=== PATIENT | male | born 1960 | race Caucasian/White ===

== ENCOUNTER 2016-08-16 20:06 | Inpatient (IN) | payer BC ==
[2016-08-16] VITALS (24 sets, daily range): BP systolic 78–98; BP diastolic 55–82; PULSE 108–110; TEMP 97; O2SAT 96–100
[~2016-08-16] VITALS: Ht 185.4 cm; Wt 125.9 kg
[2016-08-17] VITALS (692 sets, daily range): BP systolic 104–139; BP diastolic 68–99; PULSE 83–110; TEMP 96.3–98.9; O2SAT 69–100
[2016-08-17 01:24] LABS: TROPONIN-I 0.076 ng/mL (0.000-0.034)
[2016-08-17 01:36] LABS: THYROID STIMULATING HORMONE 2.37 uIU/mL (0.465-4.680)
[2016-08-17 06:19] LABS: ADD PATHOLOGY DIFF REVIEW NO
[2016-08-17 06:24] LABS: HEMATOCRIT 48.1 % (42.0-52.0); HEMOGLOBIN 15.9 g/dl (13.5-18.0); MEAN CELL VOLUME 98 fl (80.0-100.0); MEAN CORPUSCULAR HEMOGLOBIN 32 pg (27.0-31.0); MEAN CORPUSCULAR HGB CONC 33 g/dl (33.0-37.0); MEAN PLATELET VOLUME 9.6 fl (7.4-10.4); PLATELET COUNT 373 K/mm3 (130-400); RED BLOOD COUNT 4.93 M/mm3 (4.20-5.60)
[2016-08-17 06:33] LABS: CALCIUM 9.2 mg/dL (8.4-10.2); CREATININE, serum 0.98 mg/dL (0.66-1.25); POTASSIUM 4.5 mmol/L (3.4-5.0)
[2016-08-17 07:37] LABS: TROPONIN-I 0.075 ng/mL (0.000-0.034)
[2016-08-17 13:08] LABS: BAND 6 % (0-10); BASOPHIL 1 % (0-2); EOSINOPHIL 1 % (0-4); NEUTROPHILS 62 % (42.0-75.2); PLATELET ESTIMATE NORMAL (NORMAL); TOTAL CELLS COUNTED 100
[2016-08-17 17:27] LABS: ARTERIAL BLD GAS O2 SATURATION 91.7 % (92-100); ARTERIAL BLD GAS TCO2 CT 26.5; ARTERIAL BLOOD GAS BASE EXCESS -3.9 (-2-2); ARTERIAL BLOOD GAS HCO3 24.7 meq/L (22-26); ARTERIAL BLOOD GAS PHT 7.24 C (7.35-7.45); ARTERIAL BLOOD GAS PO2 69.7 mmHg (80-100); ARTERIAL BLOOD GAS PO2T 69.7 (80-100); ARTERIAL BLOOD GAS pH 7.24 (7.35-7.45); OXYHEMOGLOBIN 90.4 %
[2016-08-17 17:28] LABS: ATS? YES
[2016-08-17] MEDS ORDERED: ASPIRIN 81M81 MG/TA2 PO (23:08)
[2016-08-18] VITALS (1332 sets, daily range): BP systolic 114–132; BP diastolic 47–76; PULSE 83–114; TEMP 96.3–98.9; O2SAT 78–100
[2016-08-18 05:27] LABS: BASO % 0.2 % (0.0-2.0); GRAN # 15.2 (1.4-6.5); GRAN % 89.1 % (42.2-75.2); HEMATOCRIT 47.5 % (42.0-52.0); HEMOGLOBIN 15.7 g/dl (13.5-18.0); LYMPH # 1.4 (1.2-3.4); MEAN CELL VOLUME 97 fl (80.0-100.0); MEAN CORPUSCULAR HEMOGLOBIN 32 pg (27.0-31.0); MEAN CORPUSCULAR HGB CONC 33 g/dl (33.0-37.0); MEAN PLATELET VOLUME 9.4 fl (7.4-10.4); MONO # 0.4 (0.1-0.6); MONO % 2.1 % (1.7-9.3); PLATELET COUNT 374 K/mm3 (130-400); RED BLOOD COUNT 4.88 M/mm3 (4.20-5.60); REDCELL DISTRIBUTION WIDTH-CV 12.8 % (11.5-14.5)
[2016-08-18 05:39] LABS: CREATININE, serum 1.1 mg/dL (0.66-1.25); POTASSIUM 5.2 mmol/L (3.4-5.0)
[2016-08-18 10:34] LABS: ARTERIAL BLD GAS O2 SATURATION 93.7 % (92-100); ARTERIAL BLD GAS TCO2 CT 21.8; ARTERIAL BLOOD GAS HCO3 20.6 meq/L (22-26); ARTERIAL BLOOD GAS PHT 7.33 C (7.35-7.45); ARTERIAL BLOOD GAS PO2 71.8 mmHg (80-100); ARTERIAL BLOOD GAS PO2T 71.8 (80-100); ARTERIAL BLOOD GAS pH 7.33 (7.35-7.45); ATS? YES; OXYHEMOGLOBIN 92.3 %
[2016-08-18 10:34] LABS: PH 6 (5-8); SQUAMOUS EPITHELIAL None Seen /hpf; URINE APPEARANCE Clear; URINE BACTERIA None Seen /hpf; URINE BILIRUBIN Negative (NEGATIVE); URINE BLOOD Negative (NEGATIVE); URINE COLOR Yellow; URINE GLUCOSE 2+ (NEGATIVE); URINE KETONE Trace (NEGATIVE); URINE RBC 0-2 /hpf; URINE UROBILINOGEN Negative (NEGATIVE); URINE WBC 0-2 /hpf
[2016-08-19] VITALS (543 sets, daily range): BP systolic 110–125; BP diastolic 50–83; PULSE 79–89; TEMP 97.5–98.2; O2SAT 83–100
[2016-08-19 05:54] LABS: HEMATOCRIT 44.5 % (42.0-52.0); MEAN CELL VOLUME 96 fl (80.0-100.0); MEAN CORPUSCULAR HEMOGLOBIN 32 pg (27.0-31.0); MEAN CORPUSCULAR HGB CONC 34 g/dl (33.0-37.0); MEAN PLATELET VOLUME 9.6 fl (7.4-10.4); PLATELET COUNT 358 K/mm3 (130-400); RED BLOOD COUNT 4.64 M/mm3 (4.20-5.60); REDCELL DISTRIBUTION WIDTH-CV 13.1 % (11.5-14.5)
[2016-08-19 06:03] LABS: CALCIUM 9.1 mg/dL (8.4-10.2); CREATININE, serum 1.02 mg/dL (0.66-1.25); POTASSIUM 4.8 mmol/L (3.4-5.0)
[2016-08-19 06:40] LABS: ADD PATHOLOGY DIFF REVIEW NO; WHITE BLOOD COUNT 27.7 K/mm3 (4.8-10.8)
[2016-08-19 07:00] LABS: BAND 13 % (0-10); NEUTROPHILS 72 % (42.0-75.2); PLATELET ESTIMATE NORMAL (NORMAL); TOTAL CELLS COUNTED 200
[2016-08-19 08:36] LABS: MAGNESIUM 2.2 mg/dL (1.6-2.3)
[2016-08-20 00:23] VITALS: BP 107/66; PULSE 77; TEMP 97.5
[2016-08-20 04:33] VITALS: BP 107/72; PULSE 76; TEMP 97.5
[2016-08-20 07:27] LABS: CALCIUM 8.9 mg/dL (8.4-10.2); CREATININE, serum 1.05 mg/dL (0.66-1.25); MAGNESIUM 2.4 mg/dL (1.6-2.3); POTASSIUM 4.8 mmol/L (3.4-5.0)
[2016-08-20 07:49] VITALS: BP 104/59; PULSE 89; TEMP 97.4
[2016-08-20] MEDS ORDERED: XARELTO20 MG PO (10:41)
[2016-08-20] MEDS ORDERED: LEVAQUIN 750MG750 M1 PO (10:41)
[2016-08-20] MEDS ORDERED: PREDNISONE20 MG PO (10:43)
[2016-08-20 11:52] VITALS: BP 119/70; PULSE 83; TEMP 98.1
[2016-08-20] MEDS ORDERED: LASIX 20MG TABL20 MG PO (15:24)
[2016-08-20] MEDS ORDERED: RT ADVAIR 228 DISKUS IH (15:24)
[2016-08-20] MEDS ORDERED: INCRUSE EL62.5 MCG/A IH (15:56)
[2016-08-20] MEDS ORDERED: CORDARONE200 MG/TAB PO (15:59)
[2016-08-20] MEDS ORDERED: FLONASEALLERGY NS (16:00)
== END 2016-08-20 17:38 | disposition home or self-care (01) | DRG 308 ==
LOC: ICU 20:06 → MEDICAL 20:06 → IMCU 20:06 → MEDICAL 08-19 13:44
PROVIDERS: Family Medicine; Internal Medicine
PROC: 5A2204Z Restoration of Cardiac Rhythm, Single (ICD-10-PCS; principal; 2016-08-17)
DX: I48.0 Paroxysmal atrial fibrillation (principal); I50.23 Acute on chronic systolic (congestive) heart failure; J96.01 Acute respiratory failure with hypoxia; J44.1 Chronic obstructive pulmonary disease with (acute) exacerbation; I11.0 Hypertensive heart disease with heart failure; I08.0 Rheumatic disorders of both mitral and aortic valves; F17.210 Nicotine dependence, cigarettes, uncomplicated
CPT/HCPCS: 99222-AI; 99231-AI; 99232-AI; 99233-AI; 99239; G9654; J0282; J1650; J1815; J1940; J1956; J2250; J2704; J2930; J7030; J7050; J7060; J7512; J7614; Q9967

== ENCOUNTER 2016-12-20 12:53 | Inpatient (IN) | payer BC ==
[2016-12-20] VITALS (514 sets, daily range): BP systolic 95–136; BP diastolic 72–84; PULSE 101–105; TEMP 97; O2SAT 76–100
[~2016-12-20] VITALS: Ht 185.4 cm; Wt 113.0 kg
[~2016-12-20 12:53] MED LIST: ASPIRIN 81M81 MG/TA2 PO; CORDARONE200 MG/TAB PO; FLONASEALLERGY NS; INCRUSE EL62.5 MCG/A IH; LASIX 20MG TABL20 MG PO; LEVAQUIN 750MG750 M1 PO; PREDNISONE20 MG PO; RT ADVAIR 228 DISKUS IH; XARELTO20 MG PO
[2016-12-20] MEDS ORDERED: MULTI VITAMINS1 TAB PO (16:41)
[2016-12-20] MEDS ORDERED: PACERONE100 MG PO (16:42)
[2016-12-20] MEDS ORDERED: LASIX 40MG TABL40 MG PO (16:47)
[2016-12-20] MEDS ORDERED: AMBIEN 5MG TABLE5 MG PO (16:48)
[2016-12-20] MEDS ORDERED: ASTELIN NASAL S34 ML (16:49)
[2016-12-20 18:06] LABS: MEAN CELL VOLUME 98 fl (80.0-100.0); MEAN CORPUSCULAR HEMOGLOBIN 32 pg (27.0-31.0); MEAN CORPUSCULAR HGB CONC 32 g/dl (33.0-37.0); MEAN PLATELET VOLUME 9.8 fl (7.4-10.4); PLATELET COUNT 450 K/mm3 (130-400); RED BLOOD COUNT 5.08 M/mm3 (4.20-5.60); REDCELL DISTRIBUTION WIDTH-CV 14.5 % (11.5-14.5)
[2016-12-20 18:11] LABS: ADD PATHOLOGY DIFF REVIEW NO; WHITE BLOOD COUNT 23.1 K/mm3 (4.8-10.8)
[2016-12-20 18:15] LABS: ADJUSTED CALCIUM 9.2 mg/dL (8.4-10.2); ALBUMIN 3.1 gm/dL (3.5-5.0); BILIRUBIN,TOTAL 1.1 mg/dL (0.0-1.0); CALCIUM 8.5 mg/dL (8.4-10.2); CREATININE, serum 1.51 mg/dL (0.66-1.25); POTASSIUM 4.7 mmol/L (3.4-5.0); TOTAL PROTEIN 6.2 gm/dL (6.4-8.2)
[2016-12-20 18:18] LABS: BAND 64 % (0-10); METAMYELOCYTE 4 % (0-0); NEUTROPHILS 22 % (42.0-75.2); PLATELET ESTIMATE INCREASED (NORMAL); TOTAL CELLS COUNTED 100
[2016-12-20 19:52] LABS: ARTERIAL BLD GAS O2 SATURATION 92.2 % (92-100); ARTERIAL BLD GAS TCO2 CT 21.5; ARTERIAL BLOOD GAS BASE EXCESS -6.3 (-2-2); ARTERIAL BLOOD GAS HCO3 20.2 meq/L (22-26); ARTERIAL BLOOD GAS PHT 7.29 C (7.35-7.45); ARTERIAL BLOOD GAS PO2 68.6 mmHg (80-100); ARTERIAL BLOOD GAS PO2T 68.6 (80-100); ARTERIAL BLOOD GAS pH 7.29 (7.35-7.45); OXYHEMOGLOBIN 90.8 %
[2016-12-20 19:56] LABS: ALLEN TEST NO; ATS? NO
[2016-12-21] VITALS (1296 sets, daily range): BP systolic 100–127; BP diastolic 69–99; PULSE 93–127; TEMP 97.1–98.1; O2SAT 76–100
[2016-12-21 04:48] LABS: HEMATOCRIT 43.2 % (42.0-52.0); MEAN CELL VOLUME 99 fl (80.0-100.0); MEAN CORPUSCULAR HEMOGLOBIN 32 pg (27.0-31.0); MEAN CORPUSCULAR HGB CONC 32 g/dl (33.0-37.0); MEAN PLATELET VOLUME 9.4 fl (7.4-10.4); PLATELET COUNT 495 K/mm3 (130-400); RED BLOOD COUNT 4.36 M/mm3 (4.20-5.60); REDCELL DISTRIBUTION WIDTH-CV 14.5 % (11.5-14.5)
[2016-12-21 05:01] LABS: CALCIUM 8.2 mg/dL (8.4-10.2); CREATININE, serum 2.37 mg/dL (0.66-1.25); POTASSIUM 5.2 mmol/L (3.4-5.0)
[2016-12-21 05:09] LABS: HEMOGLOBIN 13.9 g/dl (13.5-18.0)
[2016-12-21 05:10] LABS: ADD PATHOLOGY DIFF REVIEW NO; WHITE BLOOD COUNT 20.3 K/mm3 (4.8-10.8)
[2016-12-21 05:23] LABS: ARTERIAL BLD GAS O2 SATURATION 97.5 % (92-100); ARTERIAL BLD GAS TCO2 CT 22.6; ARTERIAL BLOOD GAS BASE EXCESS -6.1 (-2-2); ARTERIAL BLOOD GAS HCO3 21.1 meq/L (22-26); ARTERIAL BLOOD GAS PHT 7.26 C (7.35-7.45); ARTERIAL BLOOD GAS PO2 116.6 mmHg (80-100); ARTERIAL BLOOD GAS PO2T 116.6 (80-100); ARTERIAL BLOOD GAS pH 7.26 (7.35-7.45); OXYHEMOGLOBIN 96.7 %
[2016-12-21 05:50] LABS: BAND 79 % (0-10); METAMYELOCYTE 1 % (0-0); NEUTROPHILS 13 % (42.0-75.2); PLATELET ESTIMATE INCREASED (NORMAL); TOTAL CELLS COUNTED 100
[2016-12-21 11:21] LABS: TROPONIN-I 0.336 ng/mL (0.000-0.034)
[2016-12-21 15:36] LABS: PH 5 (5-8); SQUAMOUS EPITHELIAL 0-2 /hpf; URINE APPEARANCE Hazy; URINE BACTERIA Rare /hpf; URINE BILIRUBIN Negative (NEGATIVE); URINE BLOOD 1+ (NEGATIVE); URINE COLOR Yellow; URINE GLUCOSE 1+ (NEGATIVE); URINE KETONE Negative (NEGATIVE); URINE UROBILINOGEN Negative (NEGATIVE)
[2016-12-21 16:28] LABS: ARTERIAL BLD GAS O2 SATURATION 94.2 % (92-100); ARTERIAL BLD GAS TCO2 CT 26.5; ARTERIAL BLOOD GAS BASE EXCESS -4.9 (-2-2); ARTERIAL BLOOD GAS HCO3 24.5 meq/L (22-26); ARTERIAL BLOOD GAS PHT 7.19 C (7.35-7.45); ARTERIAL BLOOD GAS PO2 86.3 mmHg (80-100); ARTERIAL BLOOD GAS PO2T 86.3 (80-100); OXYHEMOGLOBIN 93.3 %
[2016-12-21 16:29] LABS: ARTERIAL BLOOD GAS pH 7.19 (7.35-7.45); ATS? NO
[2016-12-21 21:00] LABS: ARTERIAL BLD GAS O2 SATURATION 98.5 % (92-100); ARTERIAL BLD GAS TCO2 CT 25.5; ARTERIAL BLOOD GAS BASE EXCESS -2.8 (-2-2); OXYHEMOGLOBIN 97.6 %
[2016-12-21 21:02] LABS: ARTERIAL BLOOD GAS PO2 138.7 mmHg (80-100); ARTERIAL BLOOD GAS PO2T 138.7 (80-100)
[2016-12-22] VITALS (1077 sets, daily range): BP systolic 106–124; BP diastolic 78–95; PULSE 97–121; TEMP 07.1; O2SAT 80–100
[2016-12-22 05:34] LABS: BASO # 0.1 (0.0-0.2); BASO % 0.5 % (0.0-2.0); GRAN # 13.4 (1.4-6.5); GRAN % 88.1 % (42.2-75.2); LYMPH # 0.7 (1.2-3.4); LYMPH % 4.8 % (20.0-51.0); MEAN CELL VOLUME 99 fl (80.0-100.0); MEAN CORPUSCULAR HGB CONC 32 g/dl (33.0-37.0); MEAN PLATELET VOLUME 9.9 fl (7.4-10.4); MONO # 0.8 (0.1-0.6); RED BLOOD COUNT 3.62 M/mm3 (4.20-5.60); REDCELL DISTRIBUTION WIDTH-CV 14.7 % (11.5-14.5); WHITE BLOOD COUNT 15.2 K/mm3 (4.8-10.8)
[2016-12-22 05:56] LABS: HEMATOCRIT 35.7 % (42.0-52.0); HEMOGLOBIN 11.5 g/dl (13.5-18.0); MEAN CORPUSCULAR HEMOGLOBIN 32 pg (27.0-31.0); PLATELET COUNT 387 K/mm3 (130-400)
[2016-12-22 06:06] LABS: CALCIUM 7.7 mg/dL (8.4-10.2); CREATININE, serum 1.26 mg/dL (0.66-1.25); POTASSIUM 5.1 mmol/L (3.4-5.0)
[2016-12-22 06:28] LABS: ARTERIAL BLOOD GAS pH 7.35 (7.35-7.45)
[2016-12-22 06:29] LABS: ARTERIAL BLD GAS O2 SATURATION 95.6 % (92-100); ARTERIAL BLOOD GAS BASE EXCESS -0.7 (-2-2); ARTERIAL BLOOD GAS HCO3 25.3 meq/L (22-26)
[2016-12-22 16:27] LABS: ARTERIAL BLOOD GAS BASE EXCESS 0.7 (-2-2); ARTERIAL BLOOD GAS HCO3 26.8 meq/L (22-26); ARTERIAL BLOOD GAS PO2 89.4 mmHg (80-100); ARTERIAL BLOOD GAS pH 7.36 (7.35-7.45)
[2016-12-22 16:28] LABS: ALLEN TEST NO; ARTERIAL BLD GAS TCO2 CT 28.3; ATS? YES
[2016-12-23] VITALS (1329 sets, daily range): BP systolic 104–141; BP diastolic 73–98; PULSE 93–112; TEMP 97–98.4; O2SAT 77–100
[2016-12-23 05:28] LABS: HEMATOCRIT 40.4 % (42.0-52.0); MEAN CELL VOLUME 98 fl (80.0-100.0); MEAN CORPUSCULAR HEMOGLOBIN 32 pg (27.0-31.0); MEAN CORPUSCULAR HGB CONC 32 g/dl (33.0-37.0); MEAN PLATELET VOLUME 9.9 fl (7.4-10.4); PLATELET COUNT 409 K/mm3 (130-400); RED BLOOD COUNT 4.12 M/mm3 (4.20-5.60); REDCELL DISTRIBUTION WIDTH-CV 14.7 % (11.5-14.5)
[2016-12-23 05:45] LABS: ADD PATHOLOGY DIFF REVIEW NO
[2016-12-23 05:51] LABS: CALCIUM 8.6 mg/dL (8.4-10.2); CREATININE, serum 1.11 mg/dL (0.66-1.25)
[2016-12-23 05:53] LABS: POTASSIUM 6.2 mmol/L (3.4-5.0)
[2016-12-23 06:06] LABS: INR 1.5 (0.8-3.0); PROTHROMBIN TIME 16.5 SECONDS (9.7-12.8)
[2016-12-23 06:07] LABS: BAND 28 % (0-10); METAMYELOCYTE 2 % (0-0); NEUTROPHILS 58 % (42.0-75.2); PLATELET ESTIMATE NORMAL (NORMAL); TOTAL CELLS COUNTED 100
[2016-12-23 06:09] LABS: PARTIAL THROMBOPLASTIN TIME 32.9 SECONDS (26.0-37.0)
[2016-12-23 21:18] LABS: CALCIUM 8.3 mg/dL (8.4-10.2); CREATININE, serum 1.04 mg/dL (0.66-1.25)
[2016-12-23 21:24] LABS: POTASSIUM 5.8 mmol/L (3.4-5.0)
[2016-12-24] VITALS (1159 sets, daily range): BP systolic 111–122; BP diastolic 73–98; PULSE 105–122; TEMP 96.9–97.5; O2SAT 57–100
[2016-12-24 03:57] LABS: CALCIUM 8.4 mg/dL (8.4-10.2); CREATININE, serum 0.99 mg/dL (0.66-1.25); POTASSIUM 5.3 mmol/L (3.4-5.0)
[2016-12-24 06:29] LABS: CALCIUM 8.3 mg/dL (8.4-10.2); CREATININE, serum 0.9 mg/dL (0.66-1.25); POTASSIUM 5.1 mmol/L (3.4-5.0)
[2016-12-24 21:11] LABS: CALCIUM 8.6 mg/dL (8.4-10.2); CREATININE, serum 1.05 mg/dL (0.66-1.25); POTASSIUM 5.1 mmol/L (3.4-5.0)
[2016-12-25] VITALS (727 sets, daily range): BP systolic 101–126; BP diastolic 66–108; PULSE 56–122; TEMP 97.7–98.7; O2SAT 82–100
[2016-12-25 04:39] LABS: CALCIUM 8.6 mg/dL (8.4-10.2); CREATININE, serum 0.99 mg/dL (0.66-1.25); MAGNESIUM 2.9 mg/dL (1.6-2.3); POTASSIUM 5.3 mmol/L (3.4-5.0)
[2016-12-25 05:31] LABS: HEMATOCRIT 40.4 % (42.0-52.0); HEMOGLOBIN 13.5 g/dl (13.5-18.0); MEAN CELL VOLUME 94 fl (80.0-100.0); MEAN CORPUSCULAR HEMOGLOBIN 32 pg (27.0-31.0); MEAN CORPUSCULAR HGB CONC 33 g/dl (33.0-37.0); MEAN PLATELET VOLUME 10.1 fl (7.4-10.4); PLATELET COUNT 538 K/mm3 (130-400); RED BLOOD COUNT 4.29 M/mm3 (4.20-5.60); REDCELL DISTRIBUTION WIDTH-CV 14.4 % (11.5-14.5); WHITE BLOOD COUNT 19.1 K/mm3 (4.8-10.8)
[2016-12-26 02:57] VITALS: BP 100/69; PULSE 120; TEMP 98.6
[2016-12-26 07:20] VITALS: BP 100/67; PULSE 110; TEMP 97.7
[2016-12-26 12:01] VITALS: BP 109/75; PULSE 122; TEMP 97.8
[2016-12-26 12:24] LABS: CALCIUM 8.8 mg/dL (8.4-10.2); CREATININE, serum 0.95 mg/dL (0.66-1.25); POTASSIUM 4.6 mmol/L (3.4-5.0)
[2016-12-26 12:55] LABS: MAGNESIUM 2.3 mg/dL (1.6-2.3)
[2016-12-26 15:58] LABS: CK total - for Isoenzymes 715 U/L (52 - 336)
[2016-12-26 16:30] VITALS: BP 94/64; PULSE 58; TEMP 97.8
[2016-12-26 21:15] VITALS: BP 134/80; PULSE 130; TEMP 97.8
[2016-12-26 23:51] VITALS: BP 99/60; PULSE 130; TEMP 97.9
[2016-12-27] VITALS (7 sets, daily range): BP systolic 98–112; BP diastolic 42–69; PULSE 78–140; TEMP 97.6–98.9
[2016-12-27 22:41] LABS: ARTERIAL BLD GAS O2 SATURATION 90.9 % (92-100); ARTERIAL BLD GAS TCO2 CT 41.1; ARTERIAL BLOOD GAS BASE EXCESS 12.7 (-2-2); ARTERIAL BLOOD GAS HCO3 39.3 meq/L (22-26); ARTERIAL BLOOD GAS PHT 7.46 C (7.35-7.45); ARTERIAL BLOOD GAS PO2 62.9 mmHg (80-100); ARTERIAL BLOOD GAS PO2T 62.9 (80-100); ARTERIAL BLOOD GAS pH 7.46 (7.35-7.45); OXYHEMOGLOBIN 89.7 %
[2016-12-27 22:42] LABS: ALLEN TEST YES; ALLENS TEST RESULT PASS; ATS? YES
[2016-12-28 02:54] VITALS: BP 113/57; PULSE 88; TEMP 98.2
[2016-12-28 08:02] LABS: HEMATOCRIT 43.2 % (42.0-52.0); HEMOGLOBIN 13.6 g/dl (13.5-18.0); MEAN CELL VOLUME 98 fl (80.0-100.0); MEAN CORPUSCULAR HEMOGLOBIN 31 pg (27.0-31.0); MEAN CORPUSCULAR HGB CONC 32 g/dl (33.0-37.0); MEAN PLATELET VOLUME 9.5 fl (7.4-10.4); PLATELET COUNT 753 K/mm3 (130-400); REDCELL DISTRIBUTION WIDTH-CV 14.4 % (11.5-14.5); WHITE BLOOD COUNT 15.9 K/mm3 (4.8-10.8)
[2016-12-28 08:05] LABS: ADJUSTED CALCIUM 9.6 mg/dL (8.4-10.2); ALBUMIN 2.7 gm/dL (3.5-5.0); BILIRUBIN,TOTAL 0.7 mg/dL (0.0-1.0); CALCIUM 8.6 mg/dL (8.4-10.2); CREATININE, serum 0.98 mg/dL (0.66-1.25); MAGNESIUM 2.1 mg/dL (1.6-2.3); POTASSIUM 4.5 mmol/L (3.4-5.0); TOTAL PROTEIN 5.7 gm/dL (6.4-8.2)
[2016-12-28 08:14] VITALS: BP 114/53; PULSE 90; TEMP 98.4
[2016-12-28 08:21] LABS: ADD PATHOLOGY DIFF REVIEW NO
[2016-12-28 09:46] LABS: BAND 5 % (0-10); EOSINOPHIL 2 % (0-4); NEUTROPHILS 62 % (42.0-75.2); PLATELET ESTIMATE INCREASED (NORMAL); TOTAL CELLS COUNTED 100
[2016-12-28 11:25] VITALS: BP 124/59; PULSE 86
[2016-12-28 16:38] VITALS: BP 107/69; PULSE 84; TEMP 98.1
[2016-12-28 19:51] VITALS: BP 100/56; PULSE 85; TEMP 97.7
[2016-12-29] VITALS (7 sets, daily range): BP systolic 99–125; BP diastolic 55–70; PULSE 76–85; TEMP 97.4–98.5
[2016-12-30] VITALS (15 sets, daily range): BP systolic 95–1407; BP diastolic 37–88; PULSE 59–94; TEMP 97.5–99.1
[2016-12-30 11:01] LABS: HEMATOCRIT 44.7 % (42.0-52.0); HEMOGLOBIN 14.5 g/dl (13.5-18.0); MEAN CELL VOLUME 96 fl (80.0-100.0); MEAN CORPUSCULAR HEMOGLOBIN 31 pg (27.0-31.0); MEAN CORPUSCULAR HGB CONC 32 g/dl (33.0-37.0); MEAN PLATELET VOLUME 8.9 fl (7.4-10.4); PLATELET COUNT 837 K/mm3 (130-400); RED BLOOD COUNT 4.66 M/mm3 (4.20-5.60); REDCELL DISTRIBUTION WIDTH-CV 14.6 % (11.5-14.5)
[2016-12-30 11:10] LABS: ADJUSTED CALCIUM 9.5 mg/dL (8.4-10.2); ALBUMIN 3.2 gm/dL (3.5-5.0); BILIRUBIN,TOTAL 0.8 mg/dL (0.0-1.0); CALCIUM 8.9 mg/dL (8.4-10.2); CREATININE, serum 0.92 mg/dL (0.66-1.25); MAGNESIUM 2.1 mg/dL (1.6-2.3); POTASSIUM 4.1 mmol/L (3.4-5.0); TOTAL PROTEIN 6.3 gm/dL (6.4-8.2)
[2016-12-30 11:18] LABS: ADD PATHOLOGY DIFF REVIEW NO
[2016-12-30 14:09] LABS: ANISOCYTOSIS 1+; BAND 2 % (0-10); NEUTROPHILS 71 % (42.0-75.2); PLATELET ESTIMATE INCREASED (NORMAL); TOTAL CELLS COUNTED 100
[2016-12-30 15:20] LABS: INR 1.1 (0.8-3.0); PROTHROMBIN TIME 12.2 SECONDS (9.7-12.8)
[2016-12-30 15:23] LABS: PARTIAL THROMBOPLASTIN TIME 33.5 SECONDS (26.0-37.0)
[2016-12-31] VITALS (7 sets, daily range): BP systolic 92–111; BP diastolic 59–75; PULSE 72–86; TEMP 97.6–98.7
[2016-12-31] MEDS ORDERED: THIAMINE 1100 MG/TAB PO (16:42)
[2016-12-31] MEDS ORDERED: LASIX 80MG TABL80 MG PO ×2 (16:43→16:54)
[2016-12-31] MEDS ORDERED: GLUCOPHAGE500 MG/TAB PO (16:44)
== END 2016-12-31 18:37 | disposition home or self-care (01) | DRG 871 ==
LOC: ICU 12:54 → MEDICAL 14:32 → ICU 12-25 09:57 → MEDICAL 12-25 12:10
PROVIDERS: Anesthesiology Critical Care Medicine; Family Medicine; Internal Medicine; Internal Medicine Cardiovascular Disease; Internal Medicine Interventional Cardiology; Nurse Practitioner Family; Specialist
PROC: 4A023N8 Measurement of Cardiac Sampling and Pressure, Bilateral, Percutaneous Approach (ICD-10-PCS; principal; 2016-12-30)
PROC: B2111ZZ Fluoroscopy of Multiple Coronary Arteries using Low Osmolar Contrast (ICD-10-PCS; 2016-12-30)
DX: A41.9 Sepsis, unspecified organism (principal); J18.9 Pneumonia, unspecified organism; J96.01 Acute respiratory failure with hypoxia; I50.23 Acute on chronic systolic (congestive) heart failure; J44.1 Chronic obstructive pulmonary disease with (acute) exacerbation; J44.0 Chronic obstructive pulmonary disease with (acute) lower respiratory infection; Q23.1 Congenital insufficiency of aortic valve; N18.9 Chronic kidney disease, unspecified; I11.0 Hypertensive heart disease with heart failure; L27.0 Generalized skin eruption due to drugs and medicaments taken internally; E11.65 Type 2 diabetes mellitus with hyperglycemia; T37.8X5A Adverse effect of other specified systemic anti-infectives and antiparasitics, initial encounter; I48.2 Chronic atrial fibrillation; Z87.891 Personal history of nicotine dependence; I27.2 Other secondary pulmonary hypertension; E87.5 Hyperkalemia
CPT/HCPCS: 99223-AI; 99232-AI; 99233-AI; 99239; A4315; A9585; C1751; J0456; J0696; J1200; J1644; J1815; J1940; J2250; J2270; J2930; J3010; J7030; J7040; J7050; J7512; Q9967

== ENCOUNTER 2018-01-18 12:20 | Inpatient (IN) | payer BC ==
[~2018-01-18] VITALS: Ht 188 cm; Wt 117.6 kg
[2018-01-18] VITALS (342 sets, daily range): BP systolic 113–1138; BP diastolic 83–90; PULSE 80–84; TEMP 97–97.4; O2SAT 60–100
[~2018-01-18 12:20] MED LIST changes: +AMBIEN 5MG TABLE5 MG PO; +ASTELIN NASAL S34 ML; +GLUCOPHAGE500 MG/TAB PO; +LASIX 40MG TABL40 MG PO; +LASIX 80MG TABL80 MG PO; +MULTI VITAMINS1 TAB PO; +PACERONE100 MG PO; +THIAMINE 1100 MG/TAB PO
[2018-01-18] MEDS ORDERED: AMBIEN 10MG10 MG PO (14:25)
[2018-01-18] MEDS ORDERED: GLUCOPHAGE500 MG/TAB PO (14:26)
[2018-01-18] MEDS ORDERED: NATURE'S BLEND100 M2 PO (14:28)
[2018-01-18] MEDS ORDERED: LASIX 80MG TABL80 MG PO (14:28)
[2018-01-18] MEDS ORDERED: ASPIRIN 32325 MG/TAB PO (14:29)
[2018-01-18 16:43] LABS: BASO # 0.1 (0.0-0.2); BASO % 0.9 % (0.0-2.0); EOS # 0.1 (0.0-0.7); EOS % 1.5 % (0-4.0); GRAN # 5.7 (1.4-6.5); GRAN % 71.9 % (42.2-75.2); HEMOGLOBIN 16.3 g/dl (13.5-18.0); LYMPH # 1.6 (1.2-3.4); LYMPH % 19.7 % (20.0-51.0); MEAN CELL VOLUME 94 fl (80.0-100.0); MEAN CORPUSCULAR HEMOGLOBIN 32 pg (27.0-31.0); MEAN CORPUSCULAR HGB CONC 34 g/dl (33.0-37.0); MEAN PLATELET VOLUME 9.1 fl (7.4-10.4); MONO # 0.4 (0.1-0.6); MONO % 5.6 % (1.7-9.3); PLATELET COUNT 311 K/mm3 (130-400); RED BLOOD COUNT 5.12 M/mm3 (4.20-5.60); REDCELL DISTRIBUTION WIDTH-CV 12.7 % (11.5-14.5)
[2018-01-18 16:52] LABS: ALBUMIN 4.1 gm/dL (3.5-5.0); BILIRUBIN,TOTAL 2.9 mg/dL (0.0-1.0); CALCIUM 9.1 mg/dL (8.4-10.2); CREATININE, serum 1.05 mg/dL (0.66-1.25); MAGNESIUM 2.1 mg/dL (1.6-2.3); POTASSIUM 4.1 mmol/L (3.4-5.0); TOTAL PROTEIN 7.3 gm/dL (6.4-8.2)
[2018-01-19] VITALS (306 sets, daily range): BP systolic 94–105; BP diastolic 39–77; PULSE 69–74; TEMP 97–98.4; O2SAT 59–100
[2018-01-19 06:05] LABS: BASO # 0.1 (0.0-0.2); BASO % 1.2 % (0.0-2.0); EOS # 0.2 (0.0-0.7); EOS % 2.5 % (0-4.0); GRAN # 5.1 (1.4-6.5); GRAN % 63.5 % (42.2-75.2); HEMATOCRIT 49.1 % (42.0-52.0); HEMOGLOBIN 16.6 g/dl (13.5-18.0); LYMPH # 2.1 (1.2-3.4); LYMPH % 26.5 % (20.0-51.0); MEAN CELL VOLUME 95 fl (80.0-100.0); MEAN CORPUSCULAR HEMOGLOBIN 32 pg (27.0-31.0); MEAN CORPUSCULAR HGB CONC 34 g/dl (33.0-37.0); MEAN PLATELET VOLUME 9.5 fl (7.4-10.4); MONO # 0.5 (0.1-0.6); MONO % 5.7 % (1.7-9.3); PLATELET COUNT 312 K/mm3 (130-400); RED BLOOD COUNT 5.19 M/mm3 (4.20-5.60); REDCELL DISTRIBUTION WIDTH-CV 12.7 % (11.5-14.5)
[2018-01-19 07:12] LABS: CALCIUM 9.2 mg/dL (8.4-10.2); CREATININE, serum 1.06 mg/dL (0.66-1.25); POTASSIUM 4.4 mmol/L (3.4-5.0)
[2018-01-19 07:39] LABS: TSH w REFLEX 5.31 uIU/mL (0.465-4.680)
[2018-01-19 11:39] LABS: ALBUMIN 4.1 gm/dL (3.5-5.0); BILIRUBIN,TOTAL 1.2 mg/dL (0.0-1.0); CALCIUM 9.3 mg/dL (8.4-10.2); CREATININE, serum 1.1 mg/dL (0.66-1.25); POTASSIUM 3.9 mmol/L (3.4-5.0)
[2018-01-20 03:55] VITALS: BP 111/72; PULSE 77; TEMP 97.5
[2018-01-20 07:10] VITALS: BP 110/81; PULSE 79; TEMP 97.5
[2018-01-20 07:11] LABS: ALBUMIN 3.9 gm/dL (3.5-5.0); BILIRUBIN,TOTAL 0.7 mg/dL (0.0-1.0); CALCIUM 9.3 mg/dL (8.4-10.2); CREATININE, serum 0.95 mg/dL (0.66-1.25)
[2018-01-20 10:50] VITALS: BP 119/75; PULSE 79; TEMP 97.5
[2018-01-20] MEDS ORDERED: ELIQUIS 5MG PO (13:36)
[2018-01-20] MEDS ORDERED: LIPITOR 40MG TA40 MG PO (13:36)
[2018-01-20] MEDS ORDERED: NITROSTAT0.4 MG/TAB SL (13:37)
[2018-01-20] MEDS ORDERED: COZAAR 25MG25 MG/TAB PO (13:37)
[2018-01-20] MEDS ORDERED: ALDACTONE 25MG25 M1 PO (13:37)
[2018-01-20] MEDS ORDERED: COREG 3.123.125 MG/T PO (13:37)
== END 2018-01-20 14:35 | disposition home or self-care (01) | DRG 281 ==
LOC: IMCU 12:20 → ICU 13:32 → SURG 13:32
PROVIDERS: Internal Medicine Cardiovascular Disease; Internal Medicine Pulmonary Disease
DX: I11.0 Hypertensive heart disease with heart failure (principal); I21.4 Non-ST elevation (NSTEMI) myocardial infarction; Q23.1 Congenital insufficiency of aortic valve; I50.23 Acute on chronic systolic (congestive) heart failure; I48.0 Paroxysmal atrial fibrillation; I08.0 Rheumatic disorders of both mitral and aortic valves; I42.9 Cardiomyopathy, unspecified; I27.22 Pulmonary hypertension due to left heart disease; E11.9 Type 2 diabetes mellitus without complications; Z87.891 Personal history of nicotine dependence; Z91.11 Patient's noncompliance with dietary regimen; G47.33 Obstructive sleep apnea (adult) (pediatric)
CPT/HCPCS: 99223-AI; 99239; J1940